=== PATIENT | female | born 1935 ===

== ENCOUNTER → 2018-06-16 | Day surgery (SDC) | payer MEDICARE, MEDICAID ==
[~2018-06-16] MED LIST: GENTAMICIN IP ONE; Gentamicin 80 mg/2mL Inj. ONE; Lidocaine 2% MPF (5 ml) Inj ONE; Midazolam 2 MG/2 ML VIAL ONE; SODIUM CHLORIDE 0.9% IP ONE; Thrombin Topical 20,000 Intl Units Spray Kit TOP ONE; ceFAZolin IV 1 gm in Dextrose 1 GM/50 ML BAG IVPB ONE
--- NOTE | 2018-06-16 19:29 | PCM.OP ---
Operative Report - Operative Report Date of Surgery/Procedure: 06/16/18 Time of Surgery/Procedure: 19:25 Surgeon: néstor Anesthesia/Sedation: MAC Pre-Operative Diagnosis: Complete heart block Pacemaker generator at DANIEL Post-Operative Diagnosis: Complete heart block Pacemaker generator at DANIEL Indication for Surgery: Complete heart block Pacemaker generator at DANIEL Operative Findings: The patient was brought to the OR after informed consent; oxygen saturation rhythm blood pressure were continuously monitored; Defibrillator pads were placed.Iv antibiotics were administred. The left pectoral region was cleansed and prepped in the usual fashion; Next a 3 cm incision was made 3 cm inferior to the left clavicle over the old pacemaker pocket; next the old pacemaker generator was removed; underlying rhythm was atrial asystole and a slow ventricular escape rhythm at 30 beats per minute The new pacemaker generator was then introduced in the field connected to the pacing leads and placed in the pocket; pace sense parameters were unchanged and acceptable; next the pocket was closed in layers. The pocket was closed in layers with 2 O vicryl and skin stples; telfa and dresing was applied; a sling was placed and the patient sent back to his room in a stable condition with orders for antibiotics x 3 doses and a chest X-ray Procedure/Operation Description: The patient was brought to the OR after informed consent; oxygen saturation rhythm blood pressure were continuously monitored; Defibrillator pads were placed.Iv antibiotics were administred. The left pectoral region was cleansed and prepped in the usual fashion; Next a 3 cm incision was made 3 cm inferior to the left clavicle over the old pacemaker pocket; next the old pacemaker generator was removed; underlying rhythm was atrial asystole and a slow ventricular escape rhythm at 30 beats per minute The new pacemaker generator was then introduced in the field connected to the pacing leads and placed in the pocket; pace sense parameters were unchanged and acceptable; next the pocket was closed in layers. The pocket was closed in layers with 2 O vicryl and skin stples; telfa and dresing was applied; a sling was placed and the patient sent back to his room in a stable condition with orders for antibiotics x 3 doses and a chest X-ray Estimated Blood Loss: 1 cc Complications: None Discharge & Condition: Stable
--- NOTE | 2018-06-16 19:34 | CP.PCM.PN ---
Subjective - Date & Time of Evaluation Date of Evaluation: 06/16/18 Time of Evaluation: 19:30 - Subjective Subjective: Ms. Carballo was brought in electively for a pacemaker generator change as the device had reached end of life indicators; pacemaker interrrogation showed the rhythm to be VVI 65 Underlying rhythm was atrial standstill and ventricular escape rhythm at 30-35 beats per minute She4 underwent successful generator change There were no complications Plan Arm sling Outpatient follow up on Wednesday06.20.2018 11 am [id number], [id number] [facility] [address] Telephone: [phone]
== END | disposition home or self-care (01) ==
LOC: C.CATHLAB 15:00
PROVIDERS: ATTEND Internal Medicine Cardiovascular Disease
DX: Z45.018 Encounter for adjustment and management of other part of cardiac pacemaker (principal); I44.2 Atrioventricular block, complete
CPT/HCPCS: 33228; 99152; 99153; C1785; J0690; J1580; J2250; J3010; J7040